=== PATIENT | male | born 1950 | race African-American/Black ===

== ENCOUNTER 2021-04-05 00:03 | Day surgery (SDC) | payer MEDICARE, SELFPAY ==
[2021-03-19 14:48] VITALS: BMI 25.0
--- NOTE | 2021-04-05 07:05 | WPDANESEPPF ---
Anes - Initial Pre Proc Eval Procedure: Operation Date: 04/05/21 09:30 Proposed Procedures p Screening Colonoscopy - Ramiro Hector MD Date/Time: 04/05/21 07:05 Surgeon: Ramiro Hector MD Pre Op Diagnosis: hx of colon polyps Patient Data Age: 70 Gender: M Height: 1.8 m Weight: 81.4 kg Allergies Allergy/AdvReac Type Severity Reaction Status Date / Time No Known Allergies Allergy Mild Verified 04/05/21 08:28 Home Medications Medication Instructions Recorded Confirmed Type omeprazole 20 mg capsule,delayed 20 mg PO BID #180 cap 10/15/20 04/05/21 Rx release Patient hx anesthesia problems: none Family hx anesthesia problems: none Results Review: All pre-operative results and documents have been reviewed as part of the pre-operative evaluation. [facility] Past Medical History Medical History (Updated 04/05/21 @ 07:05 by Rashawn Mann DO) GERD (gastroesophageal reflux disease) Family History Family History Father Carcinoma of colon Mother Patient's mother is Acute myocardial infarction Sibling Patient's sister is in good health Patient's brother is Social History Social History (Updated 04/05/21 @ 08:44 by Rashawn Mann DO) Smoking status: Current some day smoker Tobacco type: cigarettes Second hand tobacco smoke exposure: No Alcohol intake: current Alcohol use details: 1-2 drinks/day Substance use: never Living arrangements: with family Spiritual care concerns: No Anes - Eval Final PreProcedure Day of Procedure 04/05/21 07:05 Patient weight: normal Heart: regular rate and rhythm Lungs: clear to auscultation and normal air movement Airway: Mallampati scale class II Neurological: alert and oriented Last oral intake: >/= 8 hours ASA classification: II Emergent: no Anesthetic plan: proceed Anesthesia type and monitoring: general GIVS and standard monitoring Results Review: All pre-operative results and documents have been reviewed as part of the pre-operative evaluation. Informed Consent: The patient's anesthetic plan and its attendant risks and benefits were discussed with the patient/family/POA. Questions were solicited and answers provided to the satisfaction of the patient/family/POA.
[2021-04-05 08:29] VITALS: BP 135/81; PULSE 99; RESP 18; TEMP 36.5; O2SAT 100
[2021-04-05] MEDS: LACTATED RINGERS 1,000 ML 150 ML IV CONT (08:32)
--- NOTE | 2021-04-05 09:01 | P.CONGI_ITS ---
Assessment and Plan Assessment and plan (1) Family hx of colon cancer: Code(s): Z80.0 - Family history of malignant neoplasm of digestive organs Status: Acute Assessment and Plan: Patient presents for screening colonoscopy. His father had colon cancer. Patient himself had colon polyp in 2009. Further recommendations will be given after colonoscopy. GI Consult Note Consult date/time: 04/05/21 09:01 HPI: Abisai Oswald is a 70 year old male Presents for screening colonosco py. Patient's current weight appetite bowel movements are normal. He denies abdominal pain. He has had no bleeding. Family history is significant that his father had colon cancer. Patient himself had a colon polyp in 2009. He presents today for neoplasia screening. Review of Systems Review of Systems: All systems reviewed & are unremarkable except as noted in HPI and below PMFSH Past Medical History Medical History (Updated 04/05/21 @ 07:05 by Rashawn Mann DO) GERD (gastroesophageal reflux disease) Family History Family History Father Carcinoma of colon Mother Patient's mother is Acute myocardial infarction Sibling Patient's sister is in good health Patient's brother is Social History Social History (Updated 04/05/21 @ 08:44 by Rashanw Mann DO) Smoking status: Current some day smoker Tobacco type: cigarettes Second hand tobacco smoke exposure: No Alcohol intake: current Alcohol use details: 1-2 drinks/day Substance use: never Living arrangements: with family Spiritual care concerns: No Meds Home Medications and Allergies Home Medications Medication Instructions Recorded Confirmed Type omeprazole 20 mg capsule,delayed 20 mg PO BID #180 cap 10/15/20 04/05/21 Rx release Allergies Allergy/AdvReac Type Severity Reaction Status Date / Time No Known Allergies Allergy Mild Verified 04/05/21 08:28 Vital Signs Vital Signs - 24 hr 04/05/21 08:29 Temperature 97.7 F Pulse Rate 99 Respiratory Rate 18 Blood Pressure 135/81 Pulse Oximetry 100 Exam Narrative: Physical exam reveals patient be alert. Vital signs stable. HEENT exam is unremarkable. Patient is anicteric. Lungs are clear to auscultation and percussion. Heart is without murmur or extra sounds. Abdominal exam bowel sounds are present soft nontender with no organomegaly. Digital external rectal exam is normal.
[2021-04-05 09:22] VITALS: BP 93/63; PULSE 82; RESP 18; O2SAT 96
[2021-04-05 09:32] VITALS: BP 110/68; PULSE 87; RESP 16; O2SAT 100
[2021-04-05 09:42] VITALS: BP 117/80; PULSE 88; RESP 21; O2SAT 100
== END 2021-04-05 09:53 | disposition home or self-care (01) ==
PROVIDERS: PCP Internal Medicine; Visit Provider Internal Medicine Gastroenterology
PROC: 0DJD8ZZ Inspection of Lower Intestinal Tract, Via Natural or Artificial Opening Endoscopic (ICD-10-PCS; CPT 45378; principal; 2021-04-05 09:30)
DX: Z12.11 Encounter for screening for malignant neoplasm of colon (principal); D12.2 Benign neoplasm of ascending colon; Z80.0 Family history of malignant neoplasm of digestive organs; K64.8 Other hemorrhoids; K21.9 Gastro-esophageal reflux disease without esophagitis; Z87.891 Personal history of nicotine dependence
CPT/HCPCS: 45385; 88305; J2704; J7120

== ENCOUNTER 2022-06-16 15:18 | Emergency (ER) | payer MEDICARE, SELFPAY ==
--- NOTE | ~2022-06-16 | XR_ITS ---
EXAMINATION: XR foot LT min 3V DATE: 06/16/2022 19:53 INDICATION: Left foot pain TECHNIQUE: Dorsoplantar, lateral, and 2 oblique views of the left foot were obtained. COMPARISON: None. FINDINGS: Bone alignment is normal. There is no fracture. The soft tissues are unremarkable. 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 IMPRESSION: 1. No acute osseous abnormality. Reviewed, dictated and finalized at location F.
[2022-06-16 15:37] VITALS: BP 142/81; PULSE 100; RESP 16; TEMP 36.3; O2SAT 99
[2022-06-16 19:14] VITALS: BP 158/94; PULSE 78; RESP 16; O2SAT 98
[2022-06-16] MEDS: KETOROLAC 30 MG/ML VIAL (*BKC) IM (20:22)
[2022-06-16] MEDS: predniSONE 20 MG TABLET 60 MG PO (20:23)
[2022-06-16 20:24] VITALS: BP 152/96; PULSE 82; RESP 16; O2SAT 98
--- NOTE | 2022-06-16 20:37 | ED.GENADULT ---
HPI - General Adult General Chief complaint: Extremity Injury, Lower Stated complaint: left foot pain Time Seen by Provider: 06/16/22 19:48 History of Present Illness HPI narrative: Patient is a 71-year-old gentleman who presents the emergency department with chief complaint of left foot pain. Patient reports that he has had pain at the base of the first toe on the left side patient reports he was diagnosed with gout by his primary doctor placed on colchicine patient states colchicine is caused him to have diarrhea but is still having pain patient reports the pain is worse with ambulation and improved with rest reports no trauma no foreign body denies fever or chills reports that the pain does not radiate to the ankle Related Data Allergies Allergy/AdvReac Type Severity Reaction Status Date / Time No Known Allergies Allergy Mild Verified 06/11/22 08:52 Review of Systems Review of Systems: A 10 system review of systems was completed on the patient and is negative except for what is stated in the HPI. Nursing and ancillary documentation was reviewed. [facility] Past Medical History Medical History GERD (gastroesophageal reflux disease) Family History Family History Father Carcinoma of colon Mother Patient's mother is Acute myocardial infarction Sibling Patient's sister is in good health Patient's brother is Social History Social History Smoking status: Current some day smoker Tobacco type: cigarettes Second hand tobacco smoke exposure: No Alcohol intake: current Alcohol use details: 1-2 drinks/day Substance use: never Lack of Transportation: No Lack of Food: Never True Current Housing: I Have Housing Concerned About Future Housing: No Difficulty Paying Gas/Electric Bills: No Difficulty Paying for Meds: No Currently Unemployed: No Education: High School Diploma/GED Difficulty w/ Childcare or Family Care: No Living arrangements: with family Spiritual care concerns: No Exam Narrative: GENERAL: Well-appearing, well-nourished, and in no acute distress. HEAD: Normocephalic, atraumatic. EYES: PERRLA and EOMI. ENT: Nares clear, no rhinorrhea or epistaxis. Mucous membranes moist. NECK: Supple. CHEST: Clear to auscultation. No respiratory distress. HEART: Regular rate and rhythm. No murmur heard. Normal peripheral pulses. ABDOMEN: Soft, nontender, nondistended, normal active bowel sounds. EXTREMITIES: Normal range of motion. No edema. There is tenderness to palpation the base of the first toe on the left foot there is slight erythema there is no abscess laceration SKIN: Warm, dry, no rash. NEURO: No focal deficits. Alert and oriented x3. PSYCH: Normal mood and affect. Course Vital Signs Vital signs: Vital Signs Temperature 36.3 C L 06/16/22 15:37 Pulse Rate 100 06/16/22 15:37 Respiratory Rate 16 06/16/22 15:37 Blood Pressure 142/81 H 06/16/22 15:37 Pulse Oximetry 99 06/16/22 15:37 Oxygen Delivery Room Air 06/16/22 15:37 Temperature 36.3 C L 06/16/22 15:37 Pulse Rate 82 06/16/22 20:24 Respiratory Rate 16 06/16/22 20:24 Blood Pressure 152/96 H 06/16/22 20:24 Pulse Oximetry 98 06/16/22 20:24 Oxygen Delivery Room Air 06/16/22 15:37 Medical Decision Making MDM Narrative Medical decision making narrative: Differential diagnosis includes gout, arthritis, trauma, foreign body, cellulitis Patient is currently afebrile and exam is consistent with gout. Plain film x-ray of the left foot shows no evidence of foreign body no subcutaneous gas no fracture Vital Signs Vital Signs: Vital Signs Temperature 36.3 C L 06/16/22 15:37 Pulse Rate 100 06/16/22 15:37 Respiratory Rate 16 06/16/22 15:37 Blood Pressur
== END 2022-06-16 20:56 | disposition home or self-care (01) ==
PROVIDERS: Emergency Provider Emergency Medicine; PCP Internal Medicine
DX: M12.9 Arthropathy, unspecified (principal); M10.9 Gout, unspecified; K21.9 Gastro-esophageal reflux disease without esophagitis; F17.210 Nicotine dependence, cigarettes, uncomplicated
CPT/HCPCS: 73630; 96372; 99283; J1885; J7512